=== PATIENT | male | born 1975 | race African-American/Black ===

== ENCOUNTER 2016-07-08 03:15 | Emergency (ER) | payer BC ==
[~2016-07-08] VITALS: Ht 193 cm; Wt 78.2 kg
[2016-07-08 03:23] VITALS: BP 137/91; PULSE 97; RESP 18; TEMP 98.5; O2SAT 18; O2SAT 98
[2016-07-08] MEDS ORDERED: BENA25TA3 PO (04:11)
[2016-07-08] MEDS ORDERED: FLUT1SPR5 EACH NARE (04:11)
--- NOTE | 2016-07-08 04:15 | PD ---
HPI Chief Complaint: Cold / Flu Symptoms Time Seen by Provider: 04:08 Travel History International Travel<30 days: No Contact w/Intl Traveler<30days: No Traveled to known affect area: No History of Present Illness HPI The patient is a 41-year-old male that complains of a stuffy nose and nasal congestion. He denies any significant cough or fever. He denies any chest pain. He smokes one to 2 cigars daily. He states he has been worse for the last 3 nights. He has no known allergies but may have environmental allergies. PFSH Past Medical History Cancer: No Cardiovascular Problems: No Chemotherapy: No Diabetes: No Diminished Hearing: No Endocrine: No Genitourinary: No Immune Disorder: No Musculoskeletal: No Neurologic: No Psychiatric: No Reproductive: No Respiratory: No Radiation Therapy: No Sickle Cell Disease: No Tetanus Vaccination: Unknown Influenza Vaccination: No Past Surgical History Surgical History: No Previous Surgery Other Surgery: No Family History Family Hypercholesterolemia: Yes Social History Alcohol Use: Yes (2 DAILY) Tobacco Use: Yes (2 CIGAR DAILY) Substance Use: Yes (marijuana daily) Allergies-Medications (Allergen,Severity, Reaction): Coded Allergies: No Known Allergies (Unverified , 07/08/16) Reported Meds & Prescriptions Reported Meds & Active Scripts Active Prednisone 50 Mg Tab 50 Mg PO BID Benadryl Allergy (Diphenhydramine HCl) 25 Mg Tab 25 Mg PO Q6H PRN Flonase Nasal Stanley (Fluticasone Nasal Stanley) 50 Mcg/Act Stanley 100 Mcg EACH NARE BID Review of Systems Except as stated in HPI: all other systems reviewed are Neg Physical Exam Narrative GENERAL: Well-nourished, well-developed patient who talks with a voice that indicates nasal congestion. SKIN: Focused skin assessment warm/dry. HEAD: Normocephalic. EYES: No scleral icterus. There is slight bilateral injection with a clear drainage. NECK: Supple, trachea midline. No JVD or lymphadenopathy. CARDIOVASCULAR: Regular rate and rhythm without murmurs, gallops, or rubs. RESPIRATORY: Breath sounds equal bilaterally. No accessory muscle use. Lungs show a few scattered wheezes and rhonchi. GASTROINTESTINAL: Abdomen soft, non-tender, nondistended. MUSCULOSKELETAL: No cyanosis, or edema. BACK: Nontender without obvious deformity. No CVA tenderness. ENT: Tympanic membranes are clear and the throat is clear. Data Data Last Documented VS Vital Signs Date Time Temp Pulse Resp B/P Pulse Ox O2 Delivery O2 Flow Rate FiO2 07/08/16 03:53 92 18 98 Room Air 07/08/16 03:23 98.5 137/91 Orders Chest, Pa & Lat (07/08/16 04:08) Prednisone (Deltasone) (07/08/16 04:45) MDM Medical Decision Making Medical Screen Exam Complete: Yes Emergency Medical Condition: Yes Medical Record Reviewed: Yes Interpretation(s) The chest x-ray shows no acute change. It does show old rib fractures and trauma on the right. Differential Diagnosis Allergic rhinitis, asthma, pneumonia, bronchitis, viral URI Narrative Course The patient appears to have allergic rhinitis. 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 Plan: The patient be put on a tapered course of prednisone. He then is to take Benadryl. He is given Flonase as well. Diagnosis Primary Impression: Allergic rhinitis Additional Instructions: As we discussed, the prednisone is taken one tablet twice daily for 4 days followed by one tablet once daily for 4 days. Follow-up with your primary care physician next week. Med/Other Pt SpecificInfo: Prescription(s) given Scripts Prednisone 50 Mg Tab50 Mg PO BID #12 TAB Ref 0 Prov:Anton Hough MD 07/08/16 Diphenhydramine (Benadryl Allergy)25 Mg Tab25 Mg PO Q6H PRN (ALLERGIES) #44 TAB Ref 0 Prov:Anton Hough MD 07/08/16 Fluticasone Nasal Stanley (Flonase Nasal Stanley)50 Mcg/Act [id number] Mcg EACH NARE BID #1 BOTTLE Ref 0 Prov:Anton Hough MD 07/08/16 Disposition: 01 DISCHARGE HOME Condition: Stable Anton Hough MD Jul 08, 2016 04:15
--- NOTE | 2016-07-08 04:36 | RADHPO ---
EXAM DATE/TIME: 07/08/2016 04:16 [facility] COMPARISON: CHEST PA & LAT, June 07, 2013, 10:04. INDICATIONS : Shortness of breath. MEDICAL HISTORY : None. SURGICAL HISTORY : None. ENCOUNTER: Initial ACUITY: 3 days PAIN SCORE: 0/10 LOCATION: Bilateral chest FINDINGS: PA and lateral views of the chest demonstrate the lungs to be symmetrically aerated without evidence of mass, infiltrate or effusion. The cardiomediastinal contours are unremarkable. Osseous structure s are intact. CONCLUSION: Normal examination. With multiple healed right-sided rib fractures. Graeme Betancourt MD on July 08, 2016 at 4:34 Board Certified Radiologist. This report was verified electronically.
[2016-07-08] MEDS ORDERED: PRED50 PO (04:37)
[2016-07-08] MEDS ORDERED: predniSONE 20 MG TAB PO ONE (04:45)
[2016-07-08 05:00] VITALS: BP 131/86
== END 2016-07-08 05:00 | disposition home or self-care (01) ==
LOC: PHED 03:15
DX: J30.9 Allergic rhinitis, unspecified (principal); R06.2 Wheezing; Z72.0 Tobacco use
CPT/HCPCS: 71020; 99283; J7512